=== PATIENT | male | born 2000 | race Caucasian/White ===

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

== ENCOUNTER 2019-11-14 18:47 | Emergency (ER) | payer SELFPAY ==
[~2019-11-14] VITALS: Ht 182.8 cm; Wt 99.8 kg
[2019-11-14 19:49] LABS: BASO % 0.6 % (0.0-1.0); EOS # 0.2 10*3/uL (0.0-0.4); EOS % 2.4 % (1.0-4.0); HEMATOCRIT 46.4 % (42.0-52.0); LYMPH # 1.6 10*3/uL (1.3-4.4); LYMPH % 22.9 % (27.0-41.0); MEAN CELL VOLUME 88.4 fl (80.0-94.0); MEAN CORPUSCULAR HGB 29.5 pg (27.0-31.0); MEAN CORPUSCULAR HGB CONC 33.4 g/dl (33.0-37.0); MEAN PLATELET VOLUME 9.1 fl (9.6-12.3); MONO # 0.4 10*3/uL (0.1-1.0); MONO % 5.5 % (3.0-9.0); NEUT # 4.8 10*3/uL (2.3-7.9); NEUT % 68.5 % (47.0-73.0); PLATELET COUNT AUTOMATED 213 10*3/uL (130-400); RED BLOOD COUNT 5.25 10*6/uL (4.50-5.90); RED CELL DISTRI WIDTH 12.7 % (0-14.5)
[2019-11-14 20:02] LABS: BUN 8 mg/dl (7-24); CHLORIDE 109 mmol/L (98-107); POTASSIUM 3.9 mmol/L (3.5-5.1); SODIUM 141 mmol/L (136-145)
== END 2019-11-14 22:10 | disposition home or self-care (01) ==
LOC: ED 18:47
PROVIDERS: Emergency Medicine
DX: R42 Dizziness and giddiness (principal); E16.2 Hypoglycemia, unspecified

== ENCOUNTER 2024-02-12 10:30 | Emergency (ER) | payer OTHER ==
[~2024-02-12] VITALS: Ht 86.4 cm; Wt 74.8 kg
[2024-02-12 11:26] LABS: BASO % 0.2 % (0.0-1.0); HEMATOCRIT 47.7 % (42.0-52.0); MEAN CELL VOLUME 87.7 fl (80.0-94.0); MEAN CORPUSCULAR HGB CONC 34.2 g/dl (33.0-37.0); MONO # 0.6 10*3/uL (0.1-1.0); MONO % 5.9 % (3.0-9.0); NEUT # 8.7 10*3/uL (2.3-7.9); NEUT % 87.4 % (47.0-73.0); PLATELET COUNT AUTOMATED 225 10*3/uL (130-400); RED BLOOD COUNT 5.44 10*6/uL (4.50-5.90); RED CELL DISTRI WIDTH 12.9 % (0-14.5); WHITE BLOOD COUNT 9.9 10*3/uL (4.8-10.8)
[2024-02-12 12:03] LABS: ALKALINE PHOSPHATASE 78 U/L (46-116); BUN 18 mg/dl (9-23); CHLORIDE 100 mmol/L (98-107); LIPASE 23 U/L (12-53); POTASSIUM 3.9 mmol/L (3.4-5.1); SGPT/ALT 12 U/L (5-49); TOTAL PROTEIN 8.2 gm/dL (6.0-8.0)
[2024-02-12] MEDS ORDERED: Dicyclomine Hydrochloride 20 MG/10 ML OSYR PO STA (12:06)
[2024-02-12] MEDS ORDERED: Lidocaine Hydrochloride 15 ML UDC PO STA (12:06)
[2024-02-12] MEDS ORDERED: MG-AL HYDROXIDE/SIMETICONE 30 ML UDC PO STA (12:06)
[2024-02-12] MEDS ORDERED: OMEPRAZOLE40 MG PO (13:11)
== END 2024-02-12 13:16 | disposition home or self-care (01) ==
LOC: ED 10:30
PROVIDERS: Nurse Practitioner Family
DX: K21.9 Gastro-esophageal reflux disease without esophagitis (principal); Z20.822 Contact with and (suspected) exposure to COVID-19; R07.89 Other chest pain; B34.9 Viral infection, unspecified; F90.9 Attention-deficit hyperactivity disorder, unspecified type

== ENCOUNTER → 2024-02-17 | Outpatient (CLI) | payer OTHER ==
[~2024-02-17] MED LIST changes: +OMEPRAZOLE40 MG PO
== END | disposition home or self-care (01) ==
LOC: US 02:41
PROVIDERS: ATTEND Family Medicine
DX: K76.89 Other specified diseases of liver (principal); R10.11 Right upper quadrant pain; R11.0 Nausea; R50.9 Fever, unspecified